=== PATIENT | male | born 2000 | race Caucasian/White ===

== ENCOUNTER 2019-10-22 11:58 | Observation (INO) ==
[2019-10-22] MEDS ORDERED: Ondansetron 4 MG/2 ML VIAL IVP ONE (12:29)
[2019-10-22] MEDS ORDERED: Ondansetron ODT 4 MG TAB.RAPDIS SL ONE (12:36)
[2019-10-22 12:50] LABS: Basophils % 0.4 %; Eosinophils # 0.1 K/mcL (0.0-0.6); Eosinophils % 0.6 %; Hematocrit 47.3 % (37.5-50.1); Hemoglobin 16.1 g/dL (12.9-16.9); Immature Granulocytes % 0.4 % (0-4); Lymphocytes # 1.2 K/mcL (0.6-4.6); Lymphocytes % 11.9 %; Mean Corpuscular Hemoglobin 31.5 pg (28.0-33.3); Mean Corpuscular Volume 92.6 fL (83.0-100.0); Mean Platelet Volume 9.7 fL (9.4-12.4); Monocytes # 0.4 K/mcL (0.0-1.3); Monocytes % 3.5 %; Neutrophils # 8.6 K/mcL (1.6-8.9); Platelet Count 264 K/mcL (140-400); Red Blood Count 5.11 M/mcL (4.19-5.50); Red Cell Distribution Width 12.7 % (11.5-14.5); Segmented Neutrophils % 83.2 %; White Blood Count 10.4 K/mcL (4.3-11.1)
[2019-10-22 13:17] LABS: Alanine Aminotransferase 12 Units/L (7-52); Albumin 5.1 g/dL (3.5-5.7); Albumin/Globulin Ratio 2.2 (1.1-2.2); Alkaline Phosphatase 64 Units/L (34-104); Aspartate Amino Transferase 14 Units/L (13-39); BUN/Creatinine Ratio 12 (6-26); Bilirubin,Direct 0.3 mg/dL (0.0-0.2); Bilirubin,Indirect 1.1 mg/dL (0.0-1.0); Bilirubin,Total 1.4 mg/dL (0.3-1.0); Blood Urea Nitrogen 12 mg/dL (6-20); Calcium 10.4 mg/dL (8.6-10.3); Carbon Dioxide 24 mEq/L (23-29); Chloride 105 mEq/L (98-107); Globulin 2.3 g/dL (2.4-3.5); Glucose 122 mg/dL (70-105); Lipase 14 Units/L (11-82); Osmolality,Calculated 293 (280-300); Potassium 3.7 mEq/L (3.5-5.1); Sodium 141 mEq/L (136-145); Total Protein 7.4 g/dL (6.4-8.9); eGFR For African Americans > 60 (> 60); eGFR For Non-African Americans > 60 (> 60)
[2019-10-22] MEDS ORDERED: 0.9 % Sodium Chloride 1,000 ML IVC ONE (14:09)
[2019-10-22] MEDS ORDERED: Metoclopramide 10 MG/2 ML VIAL IVP ONE (14:10)
[2019-10-22] MEDS ORDERED: Isovue-370 500 ML BOTTLE IVP ONE (15:40)
[2019-10-22] MEDS ORDERED: Prochlorperazine 10 MG/2 ML VIAL IVP ONE (16:28)
[2019-10-22] MEDS ORDERED: MetroNIDAZOLE 500 MG/100 ML 500 MG/100 ML BAG IVPB ONE (16:52)
[2019-10-22] MEDS ORDERED: Ringers Solution, Lactated 1,000 ML IVC SCH (17:30)
[2019-10-22] MEDS ORDERED: Ondansetron 4 MG/2 ML VIAL IVP PRN (18:58)
[2019-10-22 19:14] VITALS: BP 126/63
== END 2019-10-22 20:00 | disposition left against medical advice (07) ==
LOC: 3ANU 11:58 → EMEROOARM 11:58 → 3ANU 17:30
PROVIDERS: ADMIT Internal Medicine; ATTEND Internal Medicine